=== PATIENT | female | born 1980 | race American Indian/Alaskan Native ===

== ENCOUNTER 2016-12-11 13:58 | Emergency (ER) | payer OTHER, MEDICARE, MEDICAID ==
[2016-12-11 14:12] VITALS: BMI 18.3
[2016-12-11 14:19] VITALS: BP 111/71; PULSE 108; RESP 20; TEMP 98.1; O2SAT 99
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
== END 2016-12-11 17:16 | disposition left against medical advice (07) ==
LOC: C.ER 13:58
DX: Z04.41 Encounter for examination and observation following alleged adult rape (principal); Z59.0 Homelessness

== ENCOUNTER 2016-12-15 00:03 | Emergency (ER) | payer MEDICARE, MEDICAID ==
[2016-12-15 00:03] VITALS: BMI 18.3
[2016-12-15 00:31] VITALS: BP 116/75; PULSE 74; RESP 20; TEMP 98.3; O2SAT 96
--- NOTE | 2016-12-15 01:12 | C.PDOC ---
History Of Present Illness 36 year old female who presents to the ER feeling anxious and demanding ativan. Patient has a Hx psychiatric disorder and has been off her medications for an unknown period of time. Patient was asleep on initial evaluation and refused to wake up; multiple approaches were used, however, patient remained noncooperative. Patient has not verbalized any physical complaints at this time. Time Seen by Provider: 12/15/16 00:51 Chief Complaint (Nursing): Psychiatric Evaluation History Per: Patient History/Exam Limitations: no limitations Onset/Duration Of Symptoms: Hrs Current Symptoms Are (Timing): Still Present Suicide/Self Injury Attempted (Context): None Modifying Factor(s): None Associated Symptoms: Anxiety. denies: Depression, Suicidal Thoughts, Suicidal Plan Recent travel outside of the [place]: No Past Medical History Reviewed: Historical Data, Nursing Documentation, Vital Signs Vital Signs: Last Vital Signs Temp 98.3 F 12/15/16 00:16 Pulse 74 12/15/16 00:16 Resp 20 12/15/16 00:16 BP 116/75 12/15/16 00:16 Pulse Ox 96 12/15/16 01:13 - Medical History PMH: Asthma Surgical History: No Surg Hx Family History: States: Unknown Family Hx - Social History Hx Tobacco Use: Yes Hx Alcohol Use: No Hx Substance Use: Yes - Immunization History Hx Tetanus Toxoid Vaccination: No Hx Influenza Vaccination: No Hx Pneumococcal Vaccination: No Review Of Systems Constitutional: Negative for: Fever, Chills Gastrointestinal: Negative for: Nausea, Vomiting, Diarrhea Psych: Positive for: Anxiety Physical Exam - Physical Exam Appears: Non-toxic, Other (Awake, alert, and oriented. Confrontational.) Skin: Normal Color, Warm, Dry Head: Atraumatic, Normacephalic Oral Mucosa: Moist Chest: Symmetrical, No Tenderness Cardiovascular: Rhythm Regular, No Murmur Respiratory: Normal Breath Sounds, No Rales, No Rhonchi, No Wheezing Gastrointestinal/Abdominal: Soft, No Tenderness Neurological/Psych: Oriented x3, Normal Speech, Normal Cognition ED Course And Treatment O2 Sat by Pulse Oximetry: 96 (Room air) Pulse Ox Interpretation: Normal Progress Note: 0100: refused to speak with this MD or Crisis Small Business Consultant. when asked nicely to sit up and speak with the clinicians, pt became agressive, hostile, and verbally threatening with this MD and staff. Escorted from ED by Security Staff. Suspect malingering. Disposition - Disposition Disposition: HOME/ ROUTINE Disposition Time: 01:10 Condition: GOOD - Clinical Impression Clinical Impression: Anxiety - Scribe Statement The provider has reviewed the documentation as recorded by the Scribsera Rodriguez All medical record entries made by the Franklinibsera were at my direction and personally dictated by me. I have reviewed the chart and agree that the record accurately reflects my personal performance of the history, physical exam, medical decision making, and the department course for this patient. I have also personally directed, reviewed, and agree with the discharge instructions and disposition.
== END 2016-12-15 01:15 | disposition home or self-care (01) ==
LOC: C.ER 00:03
DX: F41.9 Anxiety disorder, unspecified (principal)

== ENCOUNTER 2018-02-26 21:01 | Inpatient (IN) | payer MEDICARE, MEDICAID ==
[2018-02-26 21:02] VITALS: BMI 19.8
--- NOTE | 2018-02-26 22:14 | C.PDOC ---
History Of Present Illness 37 y/o female, BIBA as a transfer from [place], presents to the ED for psych admission. The patient has a PMHx of depression and schizophrenia. The patient report auditory hallucinations. Time Seen by Provider: 02/26/18 22:06 Chief Complaint (Nursing): Psychiatric Evaluation History Per: Patient History/Exam Limitations: no limitations Onset/Duration Of Symptoms: Hrs Recent travel outside of the [place]: No Past Medical History Reviewed: Historical Data, Nursing Documentation, Vital Signs Vital Signs: Last Vital Signs Temp 99.0 F 02/26/18 21:07 Pulse 92 H 02/26/18 21:07 Resp 16 02/26/18 21:07 BP 94/60 L 02/26/18 21:07 Pulse Ox 97 02/26/18 21:07 - Medical History PMH: Anxiety, Asthma, Bipolar Disorder, Depression, Schizophrenia Denies: Diabetes, Hepatitis, HIV, HTN, Chronic Kidney Disease, Seizures, Sexually Transmitted Disease Other Surgeries: Left Ankle Surgery - [facility] Procedures MEDICATION MANAGEMENT (12/28/17) Family History: States: Unknown Family Hx - Social History Hx Tobacco Use: Yes Hx Alcohol Use: No Hx Substance Use: Yes - Immunization History Hx Tetanus Toxoid Vaccination: No Hx Influenza Vaccination: No Hx Pneumococcal Vaccination: No Review Of Systems Except As Marked, All Systems Reviewed And Found Negative. Constitutional: Negative for: Fever Psych: Positive for: Other (Auditory hallucinations) Physical Exam - Physical Exam Appears: Well, Non-toxic, No Acute Distress Skin: Normal Color, Warm, Dry Head: Atraumatic, Normacephalic Eye(s): bilateral: PERRL, EOMI Ear(s): Bilateral: Normal Oral Mucosa: Moist Neck: Supple Chest: Symmetrical Cardiovascular: Rhythm Regular, No Murmur Respiratory: Normal Breath Sounds, No Rales, No Rhonchi, No Wheezing Gastrointestinal/Abdominal: Soft, No Tenderness, No Distention Extremity: Normal ROM Extremity: Bilateral: Normal Color And Temperature, Normal ROM Neurological/Psych: Oriented x3, Normal Speech ED Course And Treatment O2 Sat by Pulse Oximetry: 97 (RA) Pulse Ox Interpretation: Normal Medical Decision Making Medical Decision Making: Admission Disposition Discussed With : Tera Klein Doctor Will See Patient In The: Hospital Counseled Patient/Family Regarding: Diagnosis - Disposition Disposition: HOSPITALIZED Disposition Time: 22:13 Condition: STABLE - Clinical Impression Clinical Impression: Depression, Schizophrenia - PA / MATERIALS AND PROCESSES MANAGER / Resident Statement MD/DO has reviewed & agrees with the documentation as recorded. - Scribe Statement The provider has reviewed the documentation as recorded by the Scribe (Merari Arevalo) Provider Attestation: All medical record entries made by the Scribe were at my direction and personally dictated by me. I have reviewed the chart and agree that the record accurately reflects my personal performance of the history, physical exam, medical decision making, and the department course for this patient. I have also personally directed, reviewed, and agree with the discharge instructions and disposition.
--- NOTE | 2018-02-26 22:16 | C.PDOC ---
History Of Present Illness 37 y/o female, BIBA as a transfer from [place], presents to the ED for psych admission. The patient has a PMHx of depression and schizophrenia. The patient report auditory hallucinations. Time Seen by Provider: 02/26/18 22:06 Chief Complaint (Nursing): Psychiatric Evaluation History Per: Patient History/Exam Limitations: no limitations Onset/Duration Of Symptoms: Hrs Current Symptoms Are (Timing): Still Present Recent travel outside of the [place]: No Past Medical History Reviewed: Historical Data, Nursing Documentation, Vital Signs Vital Signs: Last Vital Signs Temp 99.0 F 02/26/18 21:07 Pulse 92 H 02/26/18 21:07 Resp 16 02/26/18 21:07 BP 94/60 L 02/26/18 21:07 Pulse Ox 97 02/26/18 21:07 - Medical History PMH: Anxiety, Asthma, Bipolar Disorder, Depression, Schizophrenia Denies: Diabetes, Hepatitis, HIV, HTN, Chronic Kidney Disease, Seizures, Sexually Transmitted Disease Other Surgeries: LEFT ANKLE SURGERY - [employer] Procedures MEDICATION MANAGEMENT (12/28/17) Family History: States: Unknown Family Hx - Social History Hx Tobacco Use: Yes Hx Alcohol Use: No Hx Substance Use: Yes - Immunization History Hx Tetanus Toxoid Vaccination: No Hx Influenza Vaccination: No Hx Pneumococcal Vaccination: No Review Of Systems Except As Marked, All Systems Reviewed And Found Negative. Constitutional: Negative for: Fever Psych: Positive for: Other (Auditory hallucinations) Physical Exam - Physical Exam Appears: Well, Non-toxic, No Acute Distress Skin: Normal Color, Warm, Dry Head: Atraumatic, Normacephalic Eye(s): bilateral: PERRL, EOMI Ear(s): Bilateral: Normal Oral Mucosa: Moist Neck: Supple Chest: Symmetrical Cardiovascular: Rhythm Regular, No Murmur Respiratory: Normal Breath Sounds, No Rales, No Rhonchi, No Wheezing Gastrointestinal/Abdominal: Soft, No Tenderness, No Distention Extremity: Normal ROM Extremity: Bilateral: Normal Color And Temperature, Normal ROM Neurological/Psych: Oriented x3, Normal Speech ED Course And Treatment O2 Sat by Pulse Oximetry: 97 (RA) Pulse Ox Interpretation: Normal Medical Decision Making Medical Decision Making: Admission Disposition - Disposition Referrals: Non [facility] Provider, [Primary Care Provider] - Forms: [employer] (Tongan) - PA / CREDIT CLERK / Resident Statement MD/DO has reviewed & agrees with the documentation as recorded. - Scribe Statement The provider has reviewed the documentation as recorded by the Scribe (Merari Arevalo) Provider Attestation: All medical record entries made by the Scribe were at my direction and personally dictated by me. I have reviewed the chart and agree that the record accurately reflects my personal performance of the history, physical exam, medical decision making, and the department course for this patient. I have also personally directed, reviewed, and agree with the discharge instructions and disposition.
--- NOTE | 2018-02-27 01:25 | PCM.BM ---
Treatment Plan Problems - Problems identified on initial assessmt Auditory Hallucinations Date Initiated: 02/27/18 Time Initiated: 22:30 Assessment reference: NA Status: Active Suicidal Ideation Date Initiated: 02/27/18 Time Initiated: 22:30 Assessment reference: NA Status: Active Treatment assets and liabiliti Patient Assests: cooperative, ADL independent, negotiates basic needs Patient Liabilities: financial problems, poor support system, substance abuse (Cocaine) - Milieu Protocol Maintain good personal hygiene: daily Encourage regular showers, daily Remind patient to perform daily oral care, every shift Assist patient to perform ADL's Conduct patient checks and document Observation sheet: Q15 minutes Maintain personal safety: every shift Educate patient to report safety concerns to staff, every shift Monitor environment for contraband/sharps Medication safety: Monitor for expected outcome, potential side effects: every shift, Assess barriers to learning: every shift, Assess readiness for medication education: every shift
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
[2018-02-28 10:36] VITALS: RESP 20
[2018-03-01 06:41] VITALS: BP 98/62; PULSE 87; TEMP 98.6; O2SAT 96
[2018-03-01] MEDS ORDERED: Pneumococcal 23-Valent Vaccine IM ONE (10:00)
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
== END 2018-03-01 13:18 | disposition home or self-care (01) | DRG 885 ==
LOC: SUPCPDRO 21:01 → C.ER 21:01 → C.5E 22:15
PROVIDERS: ADMIT Psychiatry & Neurology Psychiatry; ATTEND Psychiatry & Neurology Psychiatry
PROC: GZ3ZZZZ Medication Management (ICD-10-PCS; principal; 2018-02-26)
PROC: GZHZZZZ Group Psychotherapy (ICD-10-PCS; 2018-02-26)
PROC: GZ56ZZZ Individual Psychotherapy, Supportive (ICD-10-PCS; 2018-02-26)
DX: F25.1 Schizoaffective disorder, depressive type (principal); F14.90 Cocaine use, unspecified, uncomplicated; Y04.0XXA Assault by unarmed brawl or fight, initial encounter; Z91.14 Patient's other noncompliance with medication regimen

== ENCOUNTER 2018-06-20 22:08 | Inpatient (IN) | payer MEDICARE, MEDICAID ==
[2018-06-20 22:08] VITALS: BMI 19.8
[2018-06-20 22:32] LABS: HCG,QUALITATIVE URINE NEGATIVE (NEGATIVE)
[2018-06-20 22:35] LABS: SQUAMOUS EPITHIAL 12 /hpf (0-5); URINE BACTERIA RARE (<OCC); URINE BILIRUBIN NEGATIVE (NEGATIVE); URINE BLOOD 2+ (NEGATIVE); URINE CLARITY Hazy (Clear); URINE COLOR Yellow (YELLOW); URINE GLUCOSE (UA) NORMAL (Normal); URINE LEUKOCYTE ESTERASE NEG Leu/uL (Negative); URINE PROTEIN 1+ mg/dL (NEGATIVE)
[2018-06-20 22:36] LABS: BASO % 0.3 % (0.0-2.0); EOS # 0.2 K/uL (0.0-0.7); EOS % 2.9 % (0.0-4.0); HEMOGLOBIN 12.6 g/dL (11.0-16.0); LYMPH # 1.5 K/uL (1.0-4.3); MEAN CELL VOLUME 90.2 fL (81.0-99.0); MEAN CORPUSCULAR HEMOGLOBIN 30.7 pg (27.0-31.0); MEAN PLATELET VOLUME 8.1 fL (7.2-11.7); MONO # 0.6 K/uL (0.0-0.8); MONO % 7.7 % (0.0-10.0); NEUT % 68.1 % (50.0-75.0); RBC 4.1 Mil/uL (3.80-5.20); RED CELL DISTRIBUTION WIDTH 13.5 % (11.5-14.5); WHITE BLOOD COUNT 7.3 K/uL (4.8-10.8)
[2018-06-20 22:45] LABS: BARBITURATES, UR NEGATIVE (NEGATIVE); BENZODIAZEPINES, UR NEGATIVE (NEGATIVE); OPIATES, UR NEGATIVE (NEGATIVE); PHENCYCLIDINE, UR NEGATIVE (NEGATIVE)
[2018-06-20 22:52] LABS: ALB/GLOB RATIO 1.5 (1.0-2.1); ALBUMIN 3.8 g/dL (3.5-5.0); ALT/SGPT 15 U/L (9-52); AST/SGOT 21 U/L (14-36); BLOOD UREA NITROGEN 21 mg/dL (7-17); CALCIUM 8.7 mg/dl (8.6-10.4); GFR NON-AFRICAN AMERICAN > 60
--- NOTE | 2018-06-20 22:56 | C.PDOC ---
History Of Present Illness 38 year old female presents to the ED complaining of auditory hallucinations. Reports she signed out AMA from the psychiatry unit in [facility] for substance abuse disorder and schizoaffective disorder with hallucination and reed montelongo. States she did cocaine today and has been hearing voices telling her to kill people. Requesting to be admitted. Time Seen by Provider: 06/20/18 22:18 Chief Complaint (Nursing): Psychiatric Evaluation History Per: Patient History/Exam Limitations: no limitations Onset/Duration Of Symptoms: Hrs Current Symptoms Are (Timing): Still Present Suicide/Self Injury Attempted (Context): None Modifying Factor(s): Cocaine Associated Symptoms: Other (auditory hallucinations ) Additional History Per: Prior Records Past Medical History Reviewed: Historical Data, Nursing Documentation, Vital Signs Vital Signs: Last Vital Signs Temp 98 F 06/20/18 22:18 Pulse 91 H 06/20/18 22:18 Resp 20 06/20/18 22:18 BP 113/72 06/20/18 22:18 Pulse Ox 99 06/20/18 22:18 - Medical History PMH: Anxiety, Asthma, Bipolar Disorder, Depression, Paranoia, Schizophrenia Denies: Diabetes, Hepatitis, HIV, HTN, Chronic Kidney Disease, Seizures, Sexually Transmitted Disease Other Surgeries: Hx of surgeries - [facility] Procedures GROUP PSYCHOTHERAPY (02/26/18) INDIVIDUAL PSYCHOTHERAPY, SUPPORTIVE (02/26/18) MEDICATION MANAGEMENT (02/26/18) Family History: States: No Known Family Hx - Social History Hx Tobacco Use: Yes Hx Alcohol Use: Yes Hx Substance Use: Yes - Immunization History Hx Tetanus Toxoid Vaccination: No Hx Influenza Vaccination: No Hx Pneumococcal Vaccination: No Review Of Systems Constitutional: Negative for: Fever, Chills Cardiovascular: Negative for: Chest Pain Respiratory: Negative for: Cough, Shortness of Breath Gastrointestinal: Negative for: Nausea, Vomiting, Diarrhea Psych: Positive for: Other (auditory hallucinations ) Physical Exam - Physical Exam Appears: Non-toxic, No Acute Distress Skin: Warm, Dry Head: Normacephalic Eye(s): bilateral: Normal Inspection Nose: Normal Oral Mucosa: Moist Neck: Supple Chest: Symmetrical Cardiovascular: Rhythm Regular Respiratory: Normal Breath Sounds, No Rales, No Rhonchi, No Wheezing Gastrointestinal/Abdominal: Soft, No Tenderness, No Guarding, No Rebound Neurological/Psych: Oriented x3, Normal Speech Gait: Steady ED Course And Treatment - Laboratory Results Result Diagrams: 06/20/18 22:33 06/20/18 22:33 Lab Results: Urine Color Yellow (YELLOW) 06/20/18 22: Urine Clarity Hazy (Clear) 06/20/18 22: Urine pH 7.0 (5.0-8.0) 06/20/18 22:26 Ur Specific [place] 1.027 (1.003-1.030) 06/20/18 22:26 Urine Protein 1+ mg/dL (NEGATIVE) H 06/20/18 22:26 Urine Glucose (UA) Normal mg/dL (Normal) 06/20/18 22: Urine Ketones Negative mg/dL (NEGATIVE) 06/20/18 22: Urine Blood 2+ (NEGATIVE) H 06/20/18 22: Urine Nitrate Negative (NEGATIVE) 06/20/18 22: Urine Bilirubin Negative (NEGATIVE) 06/20/18 22: Urine Urobilinogen 2.0 mg/dL (0.2-1.0) H 06/20/18 22:26 Ur Leukocyte Esterase Neg Antoinette/uL (Negative) 06/20/18 22:26 Urine WBC (Auto) 4 /hpf (0-5) 06/20/18 22:26 Urine RBC (Auto) 25 /hpf (0-3) H 06/20/18 22:26 Ur Squamous Epith Cells 12 /hpf (0-5) H 06/20/18 22:26 Urine Bacteria Rare (<OCC) 06/20/18 22:26 Urine HCG, Qual Negative (NEGATIVE) 06/20/18 22: Urine HCG, Qual Negative (NEGATIVE) 06/20/18 22:26 Lab Interpretation: No Acute Changes (UDS + cocaine) O2 Sat by Pulse Oximetry: 99 (RA) Pulse Ox Interpretation: Normal Progress Note: Patient is medically cleared for psych admission Medical Decision Making Medical Decision Making: Plan - Bloodwork - UA - HCG - Observation 1:1 Prior records reviewed. Patient has multiple Psych admissions. Patient is noncompliant with medications. She normally signs out as AMA and relapses because she does not follow with treatment. Patient was recently discharged from [facility] for noncompliance. Disposition - Disposition Disposition: HOSPITALIZED Disposition Time: 00:26 Condition: STABLE - POA Present On Arrival: None - Clinical Impression Clinical Impression: Schizophrenia - Scribe Statement The provider has reviewed the documentation as recorded by the Scribe Courtney Moreno All medical record entries made by the Scribe were at my direction and personally dictated by me. I have reviewed the chart and agree that the record accurately reflects my personal performance of the history, physical exam, medical decision making, and the department course for this patient. I have also personally directed, reviewed, and agree with the discharge instructions and disposition.
--- NOTE | 2018-06-21 01:51 | PCM.BM ---
<Ady Rizo - Last Filed: 06/21/18 01:48> Treatment Plan Problems - Problems identified on initial assessmt Command/Auditory Hallucinations Date Initiated: 06/21/18 Time Initiated: 01:45 Assessment reference: NA Status: Monitor (Patient reports upon hospital admission. Denies upon admission to [facility]. Will continue to monitor.) Altered Thought Process Date Initiated: 06/21/18 Time Initiated: 01:45 Assessment reference: NA Status: Active Treatment assets and liabiliti Patient Assests: cooperative, self-reliant, ADL independent, negotiates basic needs, cognitively intact Patient Liabilities: live alone, substance abuse - Milieu Protocol Maintain good personal hygiene: daily Encourage regular showers, daily Remind patient to perform daily oral care, daily Assist patient to perform ADL's Conduct patient checks and document Observation sheet: Q15 minutes Maintain personal safety: every shift Educate patient to report safety concerns to staff, every shift Monitor environment for contraband/sharps Medication safety: Monitor for expected outcome, potential side effects: every shift, Assess barriers to learning: every shift, Assess readiness for medication education: every shift <Sharron Mcdonough - Last Filed: 06/22/18 13:22> Family Contact Family involvement: Famliy/SO not involved - Goals for Treatment Patient goals for treatment: "I just need a nursing home." Discharge/Continuing Care - Education Needs Education Needs: Patient Medication, Patient Coping Skills, Patient Placement options, Patient Community resources - Discharge Discharge Criteria: Tolerates medication w/o severe side effects, No longer exhibiting s/s of withdrawal, Reduction of target symptoms Discharge to:: [facility] - Treatment Team Participation Discussed with Family/SO: No Was Patient/Family/SO present at Treatment Team Meeting: Yes <Tera Klein - Last Filed: 06/24/18 11:53> - Diagnosis (1) Schizophrenia Status: Chronic Interventions: 06/24/18 11:52 * Assess/adjust medications daily and /or as needed * See patient on an individual basis 7x/week to assess status of hallucinations * Discuss risks, benefits, side effects and alternatives of medications *
[2018-06-21 06:19] VITALS: RESP 18; O2SAT 100
--- NOTE | 2018-06-21 11:39 | PCM.PSYCH ---
Initial Psychiatric Evaluation - Initial Psychiatric Evaluation Type of Admission: Voluntary Legal Status: Capacity Chief Complaint (in patient's own words): I was hearing voices.' History of Present Illness and Precipitating Events: Patient is a 38 years old -[place] female, came to the hospital disorganized behavior and voices. Patient reports a long history of inpatient psychiatric hospitalizations. She was just discharged from [facility] 2 days ago. As per the patient soon after discharge from the hospital she 2000 cocaine and started abusing increasing amount of cocaine. Yesterday she started hearing voices, became disorganized and paranoid and came to the hospital to get help. She reports of hearing voices, telling her to kill herself. She also reports visual hallucinations or paranoia. At times she reports depressed mood and feelings of hopelessness and helplessness. She also reports of irritability and agitation. She appeared disorganized and internally preoccupied. She remains disheveled and unkempt. Past medical history None reported Current Medications: Active Medications Generic Name Dose Route Start Last Admin Trade Name Freq PRN Reason Stop Dose Admin Hydroxyzine HCl 25 mg 06/21/18 01:09 Atarax PO Q6 PRN Agitation Pneumococcal Polyvalent Vaccine 0.5 ml 06/23/18 01:14 Pneumovax 23 Vaccine IM 06/23/18 01:15 .ONCE ONE Past Psychiatric History - Past Psychiatric History Previous Treatment History: Inpatient Pertinent Medical Hx (Current Medical&Sleep Prob, Allergies): Allergies Allergy/AdvReac Type Severity Reaction Status Date / Time chocolate flavor Allergy Intermediate RASH Verified 06/10/18 01:16 onion Allergy Intermediate RASH Verified 06/10/18 01:16 EGG Allergy RASH Verified 06/10/18 01:16 tomato Allergy NAUSEA Verified 06/10/18 01:16 Benztropine [Cogentin] 1 mg PO HS #14 tab 06/19/18 Divalproex [Depakote DR(*BID*)] 500 mg PO AMHS #30 tcp 06/19/18 Medroxyprogesterone Acetate 150 mg IM Q90D #1 syringe 06/19/18 Paliperidone Palmitate [Invega Trinza] 819 mg IM Q90D #1 syringe 06/19/18 Review of Systems - Review of Systems All systems: reviewed and no additional remarkable complaints except - Psychiatric Psychiatric: Anxiety, Auditory Hallucinations, Irritability Mental Status Examination - Personal Presentation Personal Presentation: Looks stated age - Affect Affect: Constricted, Depressed - Motor Activity Motor Activity: Psychomotor Retardation - Reliability in Providing Information Reliability in Providing Information: Poor, due to alteration in thoughts, Poor, due to altered mood - Speech Speech: Disorganized - Mood Mood: Depressed, Anxious - Formal Thought Process Formal Thought Process: Hallucinations, Delusions, Paranoia, Loosening of associations - Hallucinations/Delusions Hallucinations: Visual, Auditory Delusions: Persecution - Obsessions/Compulsions Obsessions: No Compulsions: No - Cognitive Functions Orientation: Person, Place, Situation, Time Sensorium: Alert Attention/Concentration: Attentive Abstract Thinking: [place] Estimate of Intelligence: Below average Judgement: Imparied, as evidence by: Poor judgement, Imparied, as evidence by: Lack of insight into illness - Risk Risk: Diminished functioning - Limitations Limitations: Living alone DSM 5 DX - DSM 5 DSM 5 Diagnosis: Schizoaffective disorder bipolar type Cocaine use disorder moderate - Recommended/Plan of Treatment Treatment Recommendations and Plan of Treatment: Schizophrenia disorder bipolar type Cocaine use disorder moderate CBT Psychoeducation Supportive therapy and group therapy Depakote 500 mg p.o. twice daily Trazodone 50 mg p.o. nightly Risperdal 1 mg p.o. twice daily Hydroxyzine 25 mg p.o. every 6 hours as needed
[2018-06-21] MEDS: Divalproex 500 mg DR Tab PO SCH (17:23)
[2018-06-22] MEDS: Divalproex 500 mg DR Tab PO SCH ×2 (09:55→17:13)
--- NOTE | 2018-06-22 14:40 | PCM.PYCHPN ---
Psychiatric Progress Note - Psychiatric Progress Note Patient seen today, length of contact: 18 min Patient Chief Complaint: "Not well" Problems Identified/Issues Discussed: The pt is seen, chart reviewed, case discussed with staff. The pt is compliant with medications and reports no side-effects. Symptoms are improving but needs more time to stabilize. Pt attends groups and activities. Support given, psycho-education provided. After care discussed. Medication Change: Yes Medical Record Reviewed: Yes Mental Status Examination - Cognitive Function Orientation: Person, Place, Situation, Time Memory: Intact Attention: WNL Concentration: Poor Association: WNL Fund of Knowledge: WNL - Mood Mood: Depressed, Anxious - Affect Affect: Constricted, Depressed - Speech Speech: Appropriate - Formal Thought Process Formal Thought Process: Hallucinations, Delusions, Paranoia, Loosening of associations - Suicidal Ideation Suicidal Ideation: No - Homicidal Ideation Homicidal Ideation: No Goal/Treatment Plan - Goal/Treatment Plan Need for Continued Stay: Discharge may exacerbated symptoms, Severe functional impairment Progress Toward Problem(s) and Goals/Treatment Plan: Continue medications Support and psychoeducation daily Attend groups and activities daily After care planning by ALBERT
[2018-06-23 06:35] VITALS: TEMP 98.7
[2018-06-23] MEDS: Divalproex 500 mg DR Tab PO SCH ×2 (09:07→17:23)
[2018-06-23] MEDS ORDERED: Pneumococcal 23-Valent Vaccine IM ONE (10:00)
[2018-06-24] MEDS: Divalproex 500 mg DR Tab PO SCH ×2 (10:31→17:50)
--- NOTE | 2018-06-24 11:54 | PCM.PYCHPN ---
Psychiatric Progress Note - Psychiatric Progress Note Patient seen today, length of contact: 18 min Patient Chief Complaint: I am feeling little better.' Problems Identified/Issues Discussed: Patient seen and evaluated, chart reviewed and discussed the staff. Patient reports improvement in her depressed mood and reports improvement in the feelings of hopelessness and helplessness. She reports some improvement in the voices and paranoia. Reports that she wants to leave and she signed a 48 hours notice. She is taking medication but denies any side effects Supportive therapy was given Medication Change: Yes Medical Record Reviewed: Yes Mental Status Examination - Cognitive Function Orientation: Person, Place, Situation, Time Memory: Intact Attention: WNL Concentration: Poor Association: WNL Fund of Knowledge: WNL - Mood Mood: Depressed, Anxious - Affect Affect: Constricted, Depressed - Speech Speech: Appropriate - Formal Thought Process Formal Thought Process: Delusions, Paranoia, Loosening of associations - Suicidal Ideation Suicidal Ideation: No - Homicidal Ideation Homicidal Ideation: No Goal/Treatment Plan - Goal/Treatment Plan Need for Continued Stay: Discharge may exacerbated symptoms, Severe functional impairment Progress Toward Problem(s) and Goals/Treatment Plan: Schizophrenia disorder bipolar type Cocaine use disorder moderate CBT Psychoeducation Supportive therapy and group therapy Depakote 500 mg p.o. twice daily Trazodone 50 mg p.o. nightly Risperdal 1 mg p.o. twice daily Hydroxyzine 25 mg p.o. every 6 hours as needed
[2018-06-24 15:41] VITALS: BP 101/66; PULSE 77
[2018-06-25] MEDS: Divalproex 500 mg DR Tab PO SCH (09:52)
--- NOTE | 2018-06-25 10:01 | PCM.PYCHPN ---
Psychiatric Progress Note - Psychiatric Progress Note Patient seen today, length of contact: 18 min Patient Chief Complaint: I m feeling better.' Problems Identified/Issues Discussed: Patient seen and evaluated, chart reviewed and discussed the staff. Patient reports improvement in her depressed mood and reports improvement in the feelings of hopelessness and helplessness. She reports some improvement in the voices and paranoia. Reports that she wants to leave and she signed a 48 hours notice. She is taking medication but denies any side effects Supportive therapy was given Medication Change: Yes Medical Record Reviewed: Yes Mental Status Examination - Cognitive Function Orientation: Person, Place, Situation, Time Memory: Intact Attention: WNL Concentration: Poor Association: WNL Fund of Knowledge: WNL - Mood Mood: Depressed, Anxious - Affect Affect: Constricted, Depressed - Speech Speech: Appropriate - Formal Thought Process Formal Thought Process: Hallucinations, Delusions, Paranoia, Loosening of associations - Suicidal Ideation Suicidal Ideation: No - Homicidal Ideation Homicidal Ideation: No Goal/Treatment Plan - Goal/Treatment Plan Need for Continued Stay: Discharge may exacerbated symptoms, Severe functional impairment Progress Toward Problem(s) and Goals/Treatment Plan: Schizophrenia disorder bipolar type Cocaine use disorder moderate CBT Psychoeducation Supportive therapy and group therapy Depakote 500 mg p.o. twice daily Trazodone 50 mg p.o. nightly Risperdal 1 mg p.o. twice daily Hydroxyzine 25 mg p.o. every 6 hours as needed
--- NOTE | 2018-06-25 10:06 | PCM.PYCHDC ---
Mental Status Examination - Mental Status Examination Orientation: Person, Place, Situation, Time Memory: Intact Mood: Neutral Affect: Constricted Speech: Soft Attention: WNL Concentration: WNL Association: WNL Fund of Knowledge: WNL Formal Thought Process: No Impairment Description of patient's judgement and insight: good, fair Psychotic Thoughts and Behaviors: denies any AVH Suicidal Ideation: No Current Homicidal Ideation?: No Discharge Summary - Discharge Note Reason for Hospitalization: Patient is a 38 years old -[place] female, came to the hospital disorganized behavior and voices. Patient reports a long history of inpatient psychiatric hospitalizations. She was just discharged from [facility] 2 days ago. As per the patient soon after discharge from the hospital she 2000 cocaine and started abusing increasing amount of cocaine. Yesterday she started hearing voices, became disorganized and paranoid and came to the hospital to get help. She reports of hearing voices, telling her to kill herself. She also reports visual hallucinations or paranoia. At times she reports depressed mood and feelings of hopelessness and helplessness. She also reports of irritability and agitation. She appeared disorganized and internally preoccupied. She remains disheveled and unkempt. Consultations:: List each consultation separately and include: 1. Reason for request. 2. Findings. 3. Follow-up Summary of Hospital Course include:: 1. Description of specific treatment plan utilized for patients during their course of treatmen. 2. Summarize the time- course for resolution of acute symptoms and/or regressed behaviors. 3. Describe issues identified and worked on during hospitalization. 4. Describe medication utilized. 5. Describe medical problems identified and treated. 6. Reassessment of suicide risk Summary of Hospital Course: During the course of her stay, patient (pt) started progressively improving and no longer remained irritable, depressed, paranoid, and suicidal. Her mood and anxiety were improved and she started attending groups and meetings and started socializing. Patient denied any feelings of hopelessness, helplessness, and worthlessness, denied any problem with the sleep or appetite, denied suicidal ideation or homicidal ideation. Pt denied any auditory or visual hallucinations. She denied any withdrawal symptoms. Pt was treated with medications along with supportive therapy, milieu therapy and group therapy. Some changes were made in her current medications and patient was discharged on following medications. She tolerated these medications very well and denied any side effects. - Diagnosis (1) Schizophrenia Status: Chronic Priority: High - Final Diagnosis (DSM 5) Condition upon Discharge: STABLE DSM 5: Schizophrenia disorder bipolar type Cocaine use disorder moderate Disposition: HOME/ ROUTINE Follow-up Treatment Plan: Followup: She was discharged to the [facility] program Education: Pt was educated and counseled about the risks and benefits of taking and not taking medications. Pt was educated and counseled about the risks of drinking and abusing drugs. Pt was educated and counseled to go to the ER or call 911 if pt develop suicidal ideation or homicidal ideation, worsening of symptoms or severe side effects of the meds. Prescriptions/Medication Reconciliation: Benztropine [Cogentin] 1 mg PO BID #60 tab Divalproex [Depakote DR] 500 mg PO BID #60 tcp risperiDONE [RisperDAL Tab] 1 mg PO BID #60 tab - Smoking Cessation Smoking Cessation Medication prescribed: No - Antipsychotic Medications Pt discharged on 2 or more routine antipsychotic medications: No
[2018-06-27] MEDS ORDERED: Pneumococcal 23-Valent Vaccine IM ONE (10:00)
== END 2018-06-25 10:15 | disposition home or self-care (01) | DRG 885 ==
LOC: C.ER 22:08 → C.5E 06-21 00:26
PROVIDERS: ADMIT Psychiatry & Neurology Psychiatry; ATTEND Psychiatry & Neurology Psychiatry
PROC: GZHZZZZ Group Psychotherapy (ICD-10-PCS; principal; 2018-06-21)
PROC: HZ52ZZZ Individual Psychotherapy for Substance Abuse Treatment, Cognitive-Behavioral (ICD-10-PCS; 2018-06-21)
PROC: HZ59ZZZ Individual Psychotherapy for Substance Abuse Treatment, Supportive (ICD-10-PCS; 2018-06-21)
PROC: HZ56ZZZ Individual Psychotherapy for Substance Abuse Treatment, Psychoeducation (ICD-10-PCS; 2018-06-21)
PROC: HZ42ZZZ Group Counseling for Substance Abuse Treatment, Cognitive-Behavioral (ICD-10-PCS; 2018-06-21)
PROC: HZ46ZZZ Group Counseling for Substance Abuse Treatment, Psychoeducation (ICD-10-PCS; 2018-06-21)
PROC: GZ58ZZZ Individual Psychotherapy, Cognitive-Behavioral (ICD-10-PCS; 2018-06-21)
PROC: GZ56ZZZ Individual Psychotherapy, Supportive (ICD-10-PCS; 2018-06-21)
DX: F25.0 Schizoaffective disorder, bipolar type (principal); F14.20 Cocaine dependence, uncomplicated; F41.9 Anxiety disorder, unspecified; J45.909 Unspecified asthma, uncomplicated; Z87.891 Personal history of nicotine dependence